=== PATIENT | female | born 1955 | race Caucasian/White ===

== ENCOUNTER 2018-03-13 08:35 | Day surgery (SDC) | payer OTHER ==
[~2018-03-13 08:35] MED LIST: Lactated Ringers 1,000 ML IV SCH; Sodium Chloride 0.9% 10 ML Syringe FLUSH PRN
--- NOTE | 2018-03-13 09:31 | PCM.HPR ---
H & P Addendum review - H & P Addendum Review Date of Original H & P: 02/20/18 Date Reviewed: 03/13/18 Time Reviewed: 09:31 Patient was Examined: No Changes
[2018-03-13] MEDS ORDERED: Midazolam 1 MG/ML 2 ML SDV ONE ×2 (09:34→09:35)
[2018-03-13] MEDS ORDERED: fentaNYL 100 MCG/2 ML SDV ONE ×2 (09:34→09:35)
[2018-03-13] MEDS ORDERED: Propofol 200 MG/20 ML SDV ONE ×2 (09:35)
--- NOTE | 2018-03-13 10:06 | PCM.OPNOTE ---
- General Post-Op/Procedure Note Date of Surgery/Procedure: 03/13/18 Operative Procedure(s): Colonoscopy with bx's Findings: UC in Sig and Rectum Pre Op Diagnosis: HX ARAM Post-Op Diagnosis: Same Anesthesia Technique: CHELI Primary Surgeon: Gary Vargas Anesthesia Provider: Connie Henderson Complications: None Condition: Good
--- NOTE | 2018-03-13 18:16 | OR ---
Date of Procedure: 03/13/2018 PREOPERATIVE DIAGNOSIS: History of chronic ulcerative colitis. POSTOPERATIVE DIAGNOSIS: History of chronic ulcerative colitis. PROCEDURE: Colonoscopy with multiple biopsies. ANESTHESIA: IV sedation. PROCEDURE IN DETAIL: The patient was brought to the procedure room where she was placed on her left side and IV sedation administered. Digital rectal exam was performed which was normal. Colonoscope was inserted, and there was some difficulty getting through tortuous colon requiring pressure on the abdomen. Cecum was confirmed by identifying the appendiceal orifice and the ileocecal valve. Prep was good, and surfaces were well visualized. Upon withdrawing the scope, the ascending, transverse, and descending colon were normal in appearance. I did take two random biopsies from each segment of those areas. In the distal sigmoid colon and rectum, was exacerbation of her ulcerative colitis with granular appearance of the surface and acute inflammation without ulcers or bleeding. I did take biopsies from the sigmoid colon and rectum also. Retroflexion was normal. Air was removed and the scope withdrawn. The patient tolerated the procedure well and returned to recovery in stable condition. I will have her start a prednisone taper of 30 mg daily and taper down over 4 weeks. I will have her follow up Chey Rosas PA-C, for review of biopsies. She should undergo a repeat colonoscopy in 3 years. KADE GROVER MD /[id number]
== END 2018-03-13 11:23 | disposition home or self-care (01) ==
LOC: LL.SDS 08:35
PROVIDERS: ATTEND Surgery
DX: K51.30 Ulcerative (chronic) rectosigmoiditis without complications (principal); M19.90 Unspecified osteoarthritis, unspecified site; E78.00 Pure hypercholesterolemia, unspecified; N95.2 Postmenopausal atrophic vaginitis; E78.2 Mixed hyperlipidemia; Z87.891 Personal history of nicotine dependence; Z79.899 Other long term (current) drug therapy
CPT/HCPCS: 00811; J2250; J2704; J3010; J7120